=== PATIENT | male | born 1945 ===

== ENCOUNTER 2016-12-03 07:00 | Inpatient (IN) | payer OTHER, MEDICARE ==
--- NOTE | 2016-12-03 07:05 | ED PDOC ---
Arrival/HPI - General Historian: Patient EM Caveat: Acuity of Condition - History of Present Illness Time/Duration: Prior to Arrival Symptom Onset: Sudden Symptom Course: Improving Quality: Pressure Activities at Onset: Sleeping Context: Other (Cruise) - General Chief Complaint: Chest Pain Time Seen by Provider: 12/03/16 07:02 - History of Present Illness Narrative History of Present Illness (Text): Patient is a 71 year old male with a past medical history of Hypertension and sleep apnea who [place] [facility] [place] with complaints of shortness of breath that woke patient out of his sleep at midnight which occurred two days ago while on cruise ship. Patient states that two days prior he was on the cruise ship and woke up feeling as if he were gasping for air. Patient states that he normally sleeps with his CPAP machine but was unable to do so the night before. Patient decided to go outside to get fresh air. He noticed that the dyspnea wasn't improving and asked the security guard supervisor to take him to the clinic. As per cruise ship report, patient was brought to clinic at 5:20 am 12/01/16 cold pale and slow to answer, oriented to person only with complaints of dyspnea. After blood work was taken, he was found to have elevated troponins (12,7.3,10.64) for which he was given aspirin 324 mg, clonidine 0.1 mg, enoxaparin 80 mg, plavix 75 mg. Patient was diagnosed with an NSTEMI on 12/01/16, however ST elevations are noted on EKG taken on 12/02/16. Patient was placed on 24 hour monitoring. He states that last night he started feeling the same shortness of breath and gasping for air he had exeprienced the previous night. Patient currently denies chest pain, shortness of breath, n/v/d, headache, dizziness, weakness. PMD: Dr. Swanson ([place]) PMH: Hypertension, Sleep apnea, Dyslipidemia Medications: Metoprolol 25 mg BID FMH: DM II Allergies:NKDA PSH: no major surgeries 12/03/16 07:34 12/03/16 07:55 12/03/16 08:42 12/03/16 09:39 (Yan Tejeda) Past Medical History - Provider Review Nursing Documentation Reviewed: Yes Family/Social History - Physician Review Nursing Documentation Reviewed: Yes Family/Social History: Diabetes Allergies/Home Meds Allergies/Adverse Reactions: Allergies No Known Allergies Allergy (Verified 12/03/16 11:50) Home Medications: Home Meds Medication Instructions Recorded Confirmed Metoprolol Succinate [Toprol XL] 25 mg PO BID 12/03/16 12/03/16 Review of Systems - Physician Review All systems were reviewed & negative as marked: Yes - Review of Systems Systems not reviewed;Unavailable: Acuity of Condition Constitutional: absent: Fatigue, Fevers Eyes: Normal. absent: Vision Changes Respiratory: absent: SOB, Cough, Wheezing Cardiovascular: absent: Chest Pain, Palpitations Gastrointestinal: absent: Abdominal Pain, Nausea, Vomiting Genitourinary Male: Normal. absent: Dysuria Skin: Normal. absent: Pruritis Neurological: Normal. absent: Headache, Dizziness Endocrine: Normal Hemo/Lymphatic: Normal Psychiatric: Normal. absent: Anxiety Physical Exam Vital Signs Reviewed: Yes Temperature: Afebrile Blood Pressure: Hypertensive Pulse: Regular Respiratory Rate: Normal Appearance: Positive for: Comfortable Pain Distress: None Mental Status: Positive for: Alert and Oriented X 3 - Systems Exam Head: Present: Atraumatic, Normocephalic Extroacular Muscles: Present: EOMI Mouth: Present: Moist Mucous Membranes. No: Dry Pharnyx: Present: Normal. No: ERYTHEMA Respiratory/Chest: Present: Clear to Auscultation, Good Air Exchange Cardiovascular: Present: Regular Rate and Rhythm, Normal S1, S2. No: Murmurs Abdomen: No: Tenderness, Distention Back: Present: Normal Inspection Upper Extremity: Present: Normal Inspection Lower Extremity: Present: Normal Inspection. No: Edema, CALF TENDERNESS Neurological: Present: CN II-XII Intact Skin: Present: Warm, Normal Color Psychiatric: Present: Alert, Oriented x 3 Medical Decision Making Re-evaluation Time: 09:00 (Patient states he feels well. Denies chest pain, shortness of breath, dizziness, hot flushes. Vitals remain stable ) Reassessment Condition: Re-examined - Lab Interpretations I have reviewed the lab results: Yes Interpretation: Abnormal lab values - RAD Interpretation Gas Distribution Supervisor: Radiologist - EKG Interpretation Interpreted by ED Physician: Yes Type: 12 lead EKG ED Course and Treatment: Assessment 71 year old male with dyspnea found to have DE two days prior on cruise ship Plan - EKG, CXR - Cardiac enzymes - Aspirin, Plavix - Discussed with Dr. Templeton regarding case at 7:55; asked to contact pathology laboratory aide , Dr. Moralez was contacted - Discussed with Dr. Moralez regarding case at 8:25; recommended contacting Dr. Mcelroy who is on his service - Discussed with Dr. Mcelroy case at 9:20; states patient will be sent to pathology laboratory aide later today: keep patient NPO, don't give lovenox, admit to telemtry - Patient will be admitted to Dr. Huang's service 12/03/16 08:21 12/03/16 08:25 12/03/16 08:50 12/03/16 09:33 12/03/16 09:40 (Yan Tejeda) Patient Seen With Resident: In agreement with resident note. Patient was seen and evaluated with resident, came up with plan and treatment together. pt aware of plan. pt with NSTEMI at this time. EKG flipped T waves anterior leads. troponin elevated. pt will be going to cath by Dr Moralez later today told to hold lovenox. pt made aware of plan and is agreeable. Dr huang came to ER to see pt as well. 12/03/16 17:35 (Luis Cavazos) - Lab Interpretations Lab Results: 12/03/16 07:20 12/03/16 07:20 Lab Results 12/03/16 07:20: PT 10.5, INR 0.97, APTT 30.6 12/03/16 07:20: WBC 11.7 H, RBC 4.76, Hgb 16.0, Hct 46.2, MCV 97.1, MCH 33.6, MCHC 34.6, RDW 13.3, Plt Count 211, MPV 10.7, Gran % 63.2, Lymph % (Auto) 23.7, Talbot % (Auto) 12.6 H, Eos % (Auto) 0.3 L, Baso % (Auto) 0.2, Gran # 7.42 H, Lymph # 2.8, Talbot # 1.5 H, Eos # 0.0, Baso # 0.02 12/03/16 07:20: Sodium 139, Potassium 4.2, Chloride 103, Carbon Dioxide 28, Anion Gap 12, BUN 14, Creatinine 1.0, Est GFR ( Amer) > 60, Est GFR (Non- Af Amer) > 60, Random Glucose 109, Calcium 9.4, Magnesium 2.1, Total Bilirubin 0.9, AST 91 H, ALT 39, Alkaline Phosphatase 40, Lactate Dehydrogenase 759 H, Total Creatine Kinase 332 H, CK-MB (CK-2) 11.4 H, CK-MB (CK-2) % 3.4 H, Troponin I 6.10 H*, Total Protein 7.8, Albumin 4.3, Globulin 3.4, Albumin/ Globulin Ratio 1.3 - RAD Interpretation Radiology Orders: 12/03/16 07:29 CHEST PORTABLE [RAD] Stat - Medication Orders Current Medication Orders: Acetaminophen (Tylenol 325mg Tab) 650 mg PO Q4H PRN PRN Reason: Pain, Mild (1-3) Alprazolam (Xanax) 0.25 mg PO BID PRN PRN Reason: Anxiety Stop: 12/10/16 17:14 Aspirin (Ecotrin) 81 mg PO DAILY [facility] Atorvastatin Calcium (Lipitor) 20 mg PO DIN [facility] Clopidogrel Bisulfate (Plavix) 75 mg PO DAILY [facility] Docusate Sodium (Colace) 100 mg PO BID [facility] Sodium Chloride (Sodium Chloride 0.9%) 1,000 mls @ 100 mls/hr IV .Q10H [facility] Stop: 12/03/16 23:16 Metoprolol Tartrate (Lopressor) 25 mg PO BID [facility] Last Admin: 12/03/16 10:00 Dose: 25 mg Morphine Sulfate (Morphine) 2 mg IVP Q2H PRN PRN Reason: Pain, moderate (4-7) Zolpidem Tartrate (Ambien) 5 mg PO HS PRN PRN Reason: Insomnia Discontinued Medications Aspirin (Aspirin) 325 mg PO STAT [facility] Stop: 12/03/16 07:30 Last Admin: 12/03/16 07:50 Dose: 325 mg Atropine Sulfate (Atropine) Confirm Administered Dose 1 mg .ROUTE .STK-MED ONE Stop: 12/03/16 16:18 Clopidogrel Bisulfate (Plavix) 300 mg PO STAT STA Stop: 12/03/16 07:34 Last Admin: 12/03/16 07:50 Dose: 300 mg Fentanyl (Fentanyl) Confirm Administered Dose 100 mcg .ROUTE .STK-MED ONE Stop: 12/03/16 16:21 Heparin Sodium (Porcine) (Heparin) Confirm Administered Dose 10,000 units .ROUTE .STK-MED ONE Stop: 12/03/16 16:18 Heparin Sodium (Porcine) (Heparin 1000 Units/500 Ml Ns) Confirm Administered Dose 1,500 mls @ ud IV .STK-MED ONE Stop: 12/03/16 16:19 Nitroglycerin/Dextrose (Nitroglycerin 50 Mg/250 Ml D5w) Confirm Administered Dose 50 mg in 250 mls @ ud IV .STK-MED ONE Stop: 12/03/16 17:02 Iohexol (Omnipaque 350 150 Ml) Confirm Administered Dose 150 ml .ROUTE .STK-MED ONE Stop: 12/03/16 16:19 Iohexol (Omnipaque 350mg/Ml 50 Ml) Confirm Administered Dose 50 ml .ROUTE .STK- MED ONE Stop: 12/03/16 16:19 Iohexol (Omnipaque 350 100 Ml) Confirm Administered Dose 350 mg .ROUTE .STK-MED ONE Stop: 12/03/16 16:19 Lidocaine HCl (Lidocaine 2% 20ml Vial) Confirm Administered Dose 20 ml .ROUTE .STK-MED ONE Stop: 12/03/16 16:18 Midazolam HCl (Versed Inj) Confirm Administered Dose 2 mg .ROUTE .STK-MED ONE Stop: 12/03/16 16:20 Ondansetron HCl (Zofran Inj) Confirm Administered Dose 4 mg .ROUTE .STK-MED ONE Stop: 12/03/16 17:10 Phenylephrine HCl (Phenylephrine Inj) Confirm Administered Dose 10 mg .ROUTE .STK-MED ONE Stop: 12/03/16 16:18 Pneumococcal Polyvalent Vaccine (Pneumovax 23 Vaccine) 0.5 ml IM .ONCE ONE Stop: 12/03/16 14:20 Disposition/Present on Arrival - Present on Arrival Any Indicators Present on Arrival: No History of DVT/PE: No History of Uncontrolled Diabetes: No Urinary Catheter: No History of Decub. Ulcer: No - Disposition Have Diagnosis and Disposition been Completed?: Yes Disposition Time: 08:51 Patient Plan: Admission - Disposition Diagnosis: Myocardial infarction Disposition: HOSPITALIZED Patient Problems: Current Active Problems Problem Status Onset Myocardial infarction Acute Condition: SERIOUS
[2016-12-03 07:48] LABS: BASO # 0.02 K/mm3 (0.0-2.0); BASO % 0.2 % (0.0-3.0); EOS % 0.3 % (1.5-5.0); GRAN # 7.42 (1.4-6.5); GRAN % 63.2 % (50.0-68.0); HEMATOCRIT 46.2 % (42.0-52.0); LYMPH # 2.8 (1.2-3.4); LYMPH % 23.7 % (22.0-35.0); MEAN CELL VOLUME 97.1 fl (80.0-105.0); MEAN CORPUSCULAR HEMOGLOBIN 33.6 pg (25.0-35.0); MEAN CORPUSCULAR HGB CONC 34.6 g/dl (31.0-37.0); MEAN PLATELET VOLUME 10.7 fl (7.0-11.0); MONO # 1.5 (0.1-0.6); MONO % 12.6 % (1.0-6.0); RED CELL DISTRIBUTION WIDTH 13.3 % (11.5-14.5); WHITE BLOOD COUNT 11.7 10^3/ul (4.5-11.0)
[2016-12-03 07:58] LABS: INR 0.97 (0.93-1.08); PARTIAL THROMBOPLASTIN TIME 30.6 Seconds (23.7-30.8)
[2016-12-03 07:59] LABS: ALB/GLOB RATIO 1.3 (1.1-1.8); ALKALINE PHOSPHATASE 40 U/L (38-126); ALT/SGPT 39 U/L (7-56); AST/SGOT 91 U/L (17-59); BILIRUBIN,TOTAL 0.9 mg/dL (0.2-1.3); BLOOD UREA NITROGEN 14 mg/dL (7-21); CALCIUM 9.4 mg/dL (8.4-10.5); CARBON DIOXIDE 28 mmol/L (21-33); CHLORIDE 103 mmol/L (98-107); GFR AFRICAN-AMERICAN > 60; GLUCOSE,RANDOM 109 mg/dL (70-110); MAGNESIUM 2.1 mg/dL (1.7-2.2); SODIUM 139 mmol/L (132-148); TOTAL PROTEIN 7.8 g/dL (5.8-8.3)
[2016-12-03 08:03] LABS: POTASSIUM 4.2 mmol/L (3.6-5.0)
--- NOTE | 2016-12-03 08:20 | RAD ---
HISTORY: chest pain COMPARISON: No prior. FINDINGS: LUNGS: No active pulmonary disease. PLEURA: No significant pleural effusion identified, no pneumothorax apparent. CARDIOVASCULAR: Normal. OSSEOUS STRUCTURES: No significant abnormalities. VISUALIZED UPPER ABDOMEN: Normal. OTHER FINDINGS: None. IMPRESSION: No active disease.
--- NOTE | 2016-12-03 13:23 | CON ---
DATE: 12/03/2016 INDICATIONS: Subacute anterior septal myocardial infarction. HISTORY OF PRESENT ILLNESS: This is a 71-year-old man who developed a chest pain while on a cruise from [place] to [place] 2 days ago. [place], given aspirin, Plavix and had resolution of his symptoms, which included chest discomfort and shortness of breath. Today, he was brought to the Emergency Room at [facility] with positive troponins and an abnormal EKG consistent with an anterior septal myocardial infarction which has evolved. He does not complain of symptoms at this time. There was no chest pain or shortness of breath. There was no orthopnea, PND, syncope, presyncope, lightheadedness, dizziness, vertigo, palpitations, edema, claudication, fever, chills, cough, sputum production, hemoptysis, abdomen pain, nausea, vomiting, diarrhea, constipation or melena. PAST MEDICAL HISTORY: Notable for hypertension, hyperlipidemia, and sleep apnea, he uses a CPAP mask. He denies any prior cardiac diagnosis. There may have been a diagnosis of atherosclerosis, but he is little vague about this. There was no history of prior myocardial infarction, angina, congestive heart failure, arrhythmia, rheumatic fever, stroke, TIA, diabetes or gout. MEDICATIONS: At the time of admission, include metoprolol 25 mg b.i.d. ALLERGIES: THERE WERE NO MEDICATION ALLERGIES. FAMILY HISTORY: Noncontributory for heart disease. REVIEW OF SYSTEMS: A 10-point review of system is otherwise is unremarkable except as noted above. PHYSICAL EXAMINATION: GENERAL: He is a well-developed male, lying on the stretcher in the emergency room, in no acute distress. His is at the bedside. VITAL SIGNS: Notable for pulse of 76 and sinus rhythm, afebrile, blood pressure of 124/82, respirations of 16 and O2 saturation of 96% on room air. HEENT: Exam reveals no neck vein distention, thyromegaly or carotid bruit. Mucous membranes are moist. Conjunctivae are pink. NECK: Supple. CHEST: Lung rhodes clear. CARDIOVASCULAR: Examination of the heart revealed normal first and second heart sounds without murmur, gallop, rub or click. PMI is not displaced. ABDOMEN: Soft. Bowel sounds present. No mass or organomegaly, tenderness, rebound or guarding. No CVA tenderness. No palpable abdominal aortic aneurysm. EXTREMITIES: Exam revealed no cyanosis, clubbing or edema. Diminished foot pulses are noted. Femoral pulses are present. NEUROLOGIC: He is awake, alert and oriented. PSYCHIATRIC: Normal as to mood and affect. SKIN: Warm and dry. No rash or cellulitis. LABORATORY AND IMAGING DATA: A portable chest x-ray reveals no active disease. EKG demonstrates regular sinus rhythm evolving anterior septal myocardial infarction with T-wave inversion and anterior precordial leads. Electrolytes: BUN, creatinine and blood sugar are unremarkable. Magnesium is normal. Total bilirubin is normal. Mild elevation of AST, normal ALT and alkaline phosphatase. CK of 332 and troponin of 6.1. PT, INR and PTT are unremarkable. White count elevated at 11,700 and normal hemoglobin, hematocrit and platelet count. IMPRESSION: Deacon Fernández is a 71-year-old male with hypertension with chest pain and shortness of breath beginning about 2 days ago while on a cruise liner. He [place] [facility] [place] [facility] [place] and found to have positive troponins, abnormal electrocardiogram showing an evolving anteroseptal myocardial infarction. He came to the emergency room today without symptoms with a troponin of 6 and abnormal electrocardiogram showing anterior septal myocardial infarction. PLAN: I have discuss the case with the ER staff. We will make arrangements for a cardiac catheterization later today. In the meantime, he is getting aspirin, Plavix and metoprolol. He is n.p.o. We will check an echocardiogram. We will check a lipid profile. I will add Lipitor to his medical list. Once the cardiac catheterization is completed, we will make additional recommendations including recommendations with regards to traveling home to [place]. Ez Sunshine MD TATYANA
--- NOTE | 2016-12-03 13:41 | CARD ---
APPROVED REPORT EKG Measurement Heart [id number] <Conclusion> Sinus rhythm with premature atrial complexes Septal infarct, age undetermined Marked T wave abnormality, consider anterolateral ischemia Abnormal ECG
--- NOTE | 2016-12-03 13:43 | CARD ---
APPROVED REPORT EKG Measurement Heart [id number] <Conclusion> Normal sinus rhythm Septal infarct, age undetermined Marked T wave abnormality, consider anterolateral ischemia Abnormal ECG
[2016-12-03 14:19] VITALS: BMI 26.9
[2016-12-03] MEDS ORDERED: Pneumococcal 23-Valent Vaccine IM ONE (14:19)
[2016-12-03] MEDS ORDERED: Lidocaine 2% Inj (20ml) ONE (16:17)
[2016-12-03] MEDS ORDERED: Phenylephrine 10 mg/ml Inj ONE (16:17)
[2016-12-03] MEDS ORDERED: Iohexol 350mgl/ml 50 ML ONE (16:18)
[2016-12-03] MEDS ORDERED: Iohexol 350 MG/100 ML VIAL ONE (16:18)
[2016-12-03] MEDS ORDERED: Midazolam 2 MG/2 ML VIAL ONE (16:19)
[2016-12-03] MEDS ORDERED: Nitroglycerin 50mg in D5W 50 MG/250 ML BOTTLE IV ONE (17:01)
[2016-12-03] MEDS ORDERED: Sodium Chloride 0.9% 1,000 ML IV SCH (17:15)
[2016-12-03] MEDS: Morphine 2 mg/ml ISec IVP PRN ×2 (17:51→22:13)
--- NOTE | 2016-12-03 21:56 | HP ---
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 Apparently on the crew ship, he was having chest pain which occurred 2 days ago and there could have been a troponin as high as 12 and now, he is here in our emergency room with a troponin of 6. I understand they called down the asbestos siding installer for cardiac cath in a few hours. This is a 71-year-old man with history of hypertension, sleep apnea who comes in from a crew ship with shortness of breath that woke him up at night, was in the emergency room at the crew ship in the intensive care unit with a positive IN. He is now here, gone for cath this afternoon. He is stable at this time, no chest pain, but he is having an NSTEMI diagnosed on the crew ship. He does have hypertension and obstructive sleep apnea. He is fairly stable as we are talking to him. His is present and he is comfortable at this time. PAST MEDICAL HISTORY: Hypertension, obstructive sleep apnea. FAMILY HISTORY: He has a family history of diabetes. ALLERGIES: HE HAS NO KNOWN DRUG ALLERGIES. He takes metoprolol at home. He has been doing fine up until 2 days ago. REVIEW OF SYSTEMS: No acute vision or hearing changes. A little bit tired. He had shortness of breath, but not now. He had chest pain with severe pressure to the left arm but not now, no palpitations, or nauseousness, then, not now. No abdominal pain. No problems urinating. Skin for the most part is intact. No itching or rashes or ulcers. He could tell me of no headache or dizziness. No anxiety or depression. PHYSICAL EXAMINATION: VITAL SIGNS: He has a 98.6 temp; 62 pulse; 158/103 blood pressure, came down to 124/82 blood pressure; 16 respiratory rate and his oxygen sat is between 96 and 97 O2 sat. HEENT: Head is atraumatic and normocephalic. Extraocular muscles are intact. Pupils are equal and reactive to light and accommodation. Throat is dry. No erythema. NECK: Supple. No JVD. HEART: Regular rate. Normal S1 and S2. LUNGS: Decreased breath sounds, but clear to auscultation. Fair effort. ABDOMEN: Soft, nontender, positive bowel sounds. EXTREMITIES: No edema. No calf tenderness. NEUROLOGIC: Cranial nerves II through XII grossly intact. GCS is 15. Alert and oriented x3. SKIN: Warm and dry. No ulcers appreciated or rashes appreciable. LYMPHATICS: Thyroid midline. No palpable lymphadenopathy. LABORATORY DATA: He had a bunch of tests done. He has 139 sodium, potassium 4.2, BUN 14, creatinine 1, GFR is greater than 60, sugar is 109. Calcium is 9.4, magnesium 2.1. Total bili is 0.9, AST is 91, ALT is 39, alkaline phosphatase is 40. Lactate dehydrogenase is as high as 759. Total creatine kinase is high as 232. His troponin 1 here is 6.1. Two days ago, was 12. Total protein 7.8. Albumin is 4.3. INR is 0.97. He has a 11.7 white count, we will keep an eye on that, could be from stress; 16 hemoglobin; 46.2 hematocrit with a 211 platelets. There was a consult for cardiology, Dr. Sunshine. I believe, Dr. Valladares would be in this afternoon to do a cardiac catheterization for an NSTEMI. We will check his labs tomorrow. I want to make sure he has oxygen, he might be put in the intensive care unit, we will see how he does after the catheterization. The patient is from a crew ship with an acute NSTEMI. Two days ago, hypertension, RIKI, for cardiac cath with Dr. Valladares and the asbestos siding installer. Asael Huang DO MTDD
[2016-12-04] MEDS: Morphine 2 mg/ml ISec IVP PRN ×2 (05:25→13:02)
--- NOTE | 2016-12-04 05:26 | CARDCATH ---
PROCEDURE DATE: 12/03/2016 HISTORY: This is a 71-year-old man who suffered a small anterior wall myocardial infarction while on a cruise ship two days ago. Upon arriving, he was brought to the emergency room. His troponin was 6. His EKG showed evidence of an evolving anterior infarct pattern. Urgent cardiac catheterization was advised. He was chest pain free at the time of the procedure. PROCEDURE: 1. Right and left coronary angiography. 2. Left ventriculography. 3. PCI of first diagonal with balloon angioplasty. 4. PCI of proximal LAD with drug-eluting stent. 5. Right femoral arteriography. 6. Left ventriculography. 7. Angio-seal deployment. FINDINGS: Hemodynamic: Aortic pressure was 100/70 with left ventricular pressure of 100/16. CORONARY ANATOMY: 1. The left main stent was short and normal. 2. Left anterior descending artery was [id number] calcified in its late proximal segment with a 90% stenosis present. In the origin of the LAD stenosis, there was a small bifurcating diagonal branch, which had MICHELLE grade 2 filling. The distal LAD had MICHELLE grade 2 flow as well. 3. The left circumflex artery gave rise to two obtuse marginal branch. The first one was moderate size and had a 70% stenosis in the proximal segment followed by mild irregularities. The circumflex artery then was fairly small with 50% lesion in its mid portion and a 70% stenosis involving the take off of the small second obtuse marginal branch. This had an 80% proximal stenosis. 4. The right coronary artery was large and dominant. This had a mild osteal disease and evidence of a 30% proximal stenosis and a mild lesion in the early distal segment. The posterior lateral branch of PE had minimal disease. LEFT VENTRICULOGRAPHY: A hand injection was performed in the left ventricle using the right Otf catheter in the artery of ejection. This revealed relatively normal wall motion with an ejection fraction of 60%. CURRENT INTERVENTION: Given the above findings, attempted PCI of the LAD was then performed. An [id number] guide catheter was utilized and 4000 units of heparin was administered. The ACT was 324 seconds during the procedure. The lesion of the LAD was successfully crossed with use of a cougar wire. Following this, a choice PT wire was advanced into the diagonal branch. A 2.0 x 15 mm sphincter balloon was then advanced over the choice PT wire into the diagonal and inflation performed to 8 atmospheres. The diseased diagonal had a reduction percent of the stenosis from 90 down to 50%. This vessel appeared fairly small caliber and did not appear appropriate for stenting at this time. The balloon was then withdrawn and the 3.0 x 12 mm balloon was advanced into the LAD at the lesion of the stenosis. This was inflated to 8 atmospheres. This was withdrawn and with this there was evidence of sluggish flow into the diagonal branch. The 2.0 balloon was then advanced back into the diagonal and subsequent inflation was performed to 8 atmospheres. Flow remained fairly sluggish within the vessel. As the diagonal vessel did not appear large enough for stenting, the balloon and wire were withdrawn. Following this, a 3.0 x 15 mm residual drug-eluting stent was advanced into the LAD lesion and inflated to 12 atmospheres. There was 0% residual stenosis following the intervention. MICHELLE grade 3 flow was present at the end of the procedure. The diagonal appeared occluded. CONCLUSION: 1. Severe proximal LAD and diagonal disease. 2. Significant circumflex of first obtuse marginal and distal circumflex disease. 3. Mild RCA disease. 4. Preserved LV systolic function. 5. Successful PCI of RCA with drug-eluting stent. 6. Balloon angioplasty of the diagonal branch, however, subsequent closure of the vessel due to plaque shift and LAD stent placement. RECOMMENDATIONS: The patient was maintained on aspirin, statin, beta-damaris, Plavix at this time. Follow up enzymes and electrogram will be obtained. Stage PCI of the circumflex system should be considered. Aggressive risk factor control is advised. Favian Valladares MD
[2016-12-04 05:54] VITALS: O2SAT 96
[2016-12-04 07:34] LABS: HEMATOCRIT 45.1 % (42.0-52.0); MEAN CELL VOLUME 96.2 fl (80.0-105.0); MEAN CORPUSCULAR HEMOGLOBIN 32.8 pg (25.0-35.0); MEAN CORPUSCULAR HGB CONC 34.1 g/dl (31.0-37.0); MEAN PLATELET VOLUME 10.2 fl (7.0-11.0); RED CELL DISTRIBUTION WIDTH 12.9 % (11.5-14.5); WHITE BLOOD COUNT 12.3 10^3/ul (4.5-11.0)
[2016-12-04 07:58] LABS: ALB/GLOB RATIO 1.2 (1.1-1.8); ALKALINE PHOSPHATASE 41 U/L (38-126); ALT/SGPT 58 U/L (7-56); AST/SGOT 124 U/L (17-59); BILIRUBIN,TOTAL 1.3 mg/dL (0.2-1.3); BLOOD UREA NITROGEN 10 mg/dL (7-21); CARBON DIOXIDE 25 mmol/L (21-33); CHLORIDE 102 mmol/L (98-107); CHOLESTEROL 202 mg/dL (130-200); GFR AFRICAN-AMERICAN > 60; GLUCOSE,RANDOM 116 mg/dL (70-110); POTASSIUM 4.3 mmol/L (3.6-5.0); SODIUM 137 mmol/L (132-148); TOTAL PROTEIN 7.7 g/dL (5.8-8.3)
[2016-12-04 08:15] LABS: TROPONIN I 7.86 ng/mL
--- NOTE | 2016-12-04 08:15 | CP.PCM.PN ---
Subjective - Date & Time of Evaluation Date of Evaluation: 12/04/16 Time of Evaluation: 07:00 - Subjective Subjective: Stable on 2R s/p cath/PCI LAD and POBA D1 (which was occluded at the end of the case). Also there is residual CA/OM disease. See report. I spoke with Dr. Valladares this AM as well. Mild chest heaviness this AM and during the night. MS given. No SOB or leg/ groin sxs. V/S noted. RSR. PE: Lungs: clear Cor.: S1S2 Abd.: soft Ext.: no edema Neuro.: alert Groin OK. I/O: not recorded Echo: will review: prelim. report> ant-apical hypokinesis/akinesis c/w AL/ ischemia Labs noted. TC == 202. LDL pending. Trop pending. Objective - Vital Signs/Intake and Output Vital Signs (last 24 hours): Temp Pulse Resp BP Pulse Ox 98.5 F 89 20 142/91 H 96 12/04/16 05:54 12/04/16 05:54 12/04/16 05:54 12/04/16 05:54 12/04/16 05:54 Intake and Output: 12/04/16 12/04/16 06:59 18:59 Intake Total 1000 240 Balance 1000 240 - Medications Medications: Current Medications Acetaminophen (Tylenol 325mg Tab) 650 mg PO Q4H PRN PRN Reason: Pain, Mild (1-3) Alprazolam (Xanax) 0.25 mg PO BID PRN PRN Reason: Anxiety Stop: 12/10/16 17:14 Aspirin (Ecotrin) 81 mg PO DAILY [facility] Atorvastatin Calcium (Lipitor) 20 mg PO DIN [facility] Last Admin: 12/03/16 17:52 Dose: 20 mg Clopidogrel Bisulfate (Plavix) 75 mg PO DAILY [facility] Docusate Sodium (Colace) 100 mg PO BID [facility] Last Admin: 12/03/16 17:52 Dose: 100 mg Metoprolol Tartrate (Lopressor) 25 mg PO BID [facility] Last Admin: 12/03/16 17:52 Dose: 25 mg Morphine Sulfate (Morphine) 2 mg IVP Q2H PRN PRN Reason: Pain, moderate (4-7) Last Admin: 12/04/16 05:25 Dose: 2 mg Zolpidem Tartrate (Ambien) 5 mg PO HS PRN PRN Reason: Insomnia - Labs Labs: 12/04/16 07:15 12/04/16 07:15 PT 10.5 Seconds (9.9-11.8) 12/03/16 07:20 INR 0.97 (0.93-1.08) 12/03/16 07:20 APTT 30.6 Seconds (23.7-30.8) 12/03/16 07:20 Assessment and Plan - Assessment and Plan (Free Text) Assessment: SOB/CP/Acute ASMI ~ 12/01/16 Severe CAD on cath 12/03/16 with PCI LAD and occluded D1 after POBA and stenting of LAD. Residual CA/OM disease. Additional PCI advised. HBP RIKI HLD Plan: Additional CA/OM PCI advised. Pt may wish to travel to his daughter in [facility]. However, if he stays the PCI of CA/OM can be done here on Wednesday. If he decides to leave we will give him reports and the cath cine to take with him to [place]. Await additional AM labs. Will check echo OOB as dwaine. D/C groin bandage
--- NOTE | 2016-12-04 09:44 | CARD ---
APPROVED REPORT EXAM: Two-dimensional and M-mode echocardiogram with Doppler and color Doppler. Other Information Quality : FairRhythm : INDICATION ACUTE PA 2D DIMENSIONS IVSd1.3 (0.7-1.1cm)LVDd4.5 (3.9-5.9cm) PWd1.2 (0.7-1.1cm) M-Mode DIMENSIONS Aortic Root3.70 (2.2-3.7cm)Aortic Cusp Exc.1.70 (1.5-2.0cm) Aortic Valve AoV Peak Xixpxqvz211.0cm/sAoV VTI30.2cmLVOT Peak Nfpgtbyb316.0cm/s LVOT VTI19.00cm Mitral Valve MV E Slccfwsk52.9cm/sMV A Syrgcvrz67.7cm/sE/A ratio0.7 TDI Lateral E' Peak V6.82cm/sMedial E' Peak V4.48cm/sE/Lateral E'8.0 E/Medial E'12.3 Pulmonary Valve PV Peak Piadckjq62.1cm/sPV Peak Grad.4mmHg Tricuspid Valve TR Peak Vcurlxtx833fz/sRAP NTPLVNQT97geQeNV Peak Gr.15mmHg MAXP71cmIk LEFT VENTRICLE The left ventricle is normal size. There is mild concentric left ventricular hypertrophy. Left ventricle systolic function is mildly to moderately impaired. The Ejection Fraction is 40-45%. The septum and apex are severely hypokinetic to akinetic RIGHT VENTRICLE The right ventricle is normal size. ATRIA The left atrium size is normal. The right atrium size is normal. AORTIC VALVE The aortic valve is mildly calcified. MITRAL VALVE The mitral valve is normal in structure. TRICUSPID VALVE The tricuspid valve is normal in structure. There is trace to mild tricuspid regurgitation. PULMONIC VALVE The pulmonic valve is not well visualized. GREAT VESSELS The aortic root is normal in size. PERICARDIAL EFFUSION There is no pericardial effusion. <Conclusion> The left ventricle is normal size. There is mild concentric left ventricular hypertrophy. Left ventricle systolic function is mildly to moderately impaired. The Ejection Fraction is 40-45%. The septum and apex are severely hypokinetic to akinetic
--- NOTE | 2016-12-04 10:23 | PN ---
DATE: SUBJECTIVE: I saw Deacon resting comfortably in bed today. He came in with an NSTEMI. He was cardiac cath yesterday and had a stent placement. I do believe he needs another stent to be placed. The question is whether he gets discharge back to [place], [place] and I will continue with their order to stay here in the hospital. I will discuss with cardiology, the patient, and the patient's . He is currently on Ambien, Colace, Ecotrin, Lipitor, Lopressor, morphine, Plavix, Tylenol, and Xanax. PHYSICAL EXAMINATION GENERAL: He is comfortable in bed. He is eating. In no acute distress at this time. VITAL SIGNS: He has 98.5 temperature, 89 pulse, 142/91 blood pressure, 20 respiratory rate, 96% O2 saturation on nasal canula. CURRENT MEDICATIONS: Ambien, Colace, Ecotrin, Lipitor, Lopressor, morphine, Plavix, Tylenol, and Xanax. I attempt to increase his blood pressure medication due to blood pressure being elevated. LABORATORY DATA: He currently has a 12.3 white count, 15.4 hemoglobin, 45.1 hematocrit with 175 platelets. The white count went up could be stress related, I will consult ID for their opinion. Sodium is 137, potassium is 4.3, BUN 10, creatinine 0.8, GFR is greater than 60, sugar is 116, calcium is 9, total bilirubin is 1.3, AST is 124, ALT is 58, alkaline phosphatase is 41. Troponin was 6.1, 5.9 and 7.86. He has 7.7 protein, albumin is 4.2, cholesterol was 202, LDL is 143. ASSESSMENT AND PLAN: He was seen by cardiology today. He is stable. He is status post acute anteroseptal myocardial infarction stent in the left anterior descending artery, additional stents are needed. He has hypertension and obstructive sleep apnea and high cholesterol. If he does stay the next cath will be on Wednesday. If he does go to [place] all the reports will be sent with him. We will finalize this afternoon what the plans are. He is here for acute myocardial infarction, obstructive sleep apnea, hypertension, and high cholesterol. Asael Huang DO
[2016-12-04 17:41] VITALS: PULSE 88
[2016-12-04 18:41] VITALS: BP 116/79; RESP 20; TEMP 99.3
--- NOTE | 2016-12-04 21:02 | CARD ---
APPROVED REPORT EKG Measurement Heart [id number] <Conclusion> Normal sinus rhythm Anterior infarct, possibly acute Lateral injury pattern ACUTE ID Abnormal ECG
--- NOTE | 2016-12-12 09:43 | DS ---
HISTORY OF PRESENT ILLNESS: He was here with acute [place], status post cruise ship. He had a cardiac cath with stent placement. He decided to go back to [place] for the second stent placement. He has his medications to follow up with his shelver in [place] for the stent placement in 5 to 7 days. He understands that cardiology discussed with discharge on Deacon Fernández. Asael Huang DO MTDOchoa
== END 2016-12-04 19:41 | disposition home or self-care (01) | DRG 247 ==
LOC: ED 07:00 → ERH 09:49 → 2RSO 14:47
PROVIDERS: ADMIT Family Medicine; ATTEND Family Medicine
PROC: 027034Z Dilation of Coronary Artery, One Artery with Drug-eluting Intraluminal Device, Percutaneous Approach (ICD-10-PCS; principal; 2016-12-03)
PROC: 02703ZZ Dilation of Coronary Artery, One Artery, Percutaneous Approach (ICD-10-PCS; 2016-12-03)
PROC: 4A023N7 Measurement of Cardiac Sampling and Pressure, Left Heart, Percutaneous Approach (ICD-10-PCS; 2016-12-03)
PROC: B2111ZZ Fluoroscopy of Multiple Coronary Arteries using Low Osmolar Contrast (ICD-10-PCS; 2016-12-03)
PROC: B2151ZZ Fluoroscopy of Left Heart using Low Osmolar Contrast (ICD-10-PCS; 2016-12-03)
DX: I21.4 Non-ST elevation (NSTEMI) myocardial infarction (principal); I10 Essential (primary) hypertension; I25.10 Atherosclerotic heart disease of native coronary artery without angina pectoris; G47.33 Obstructive sleep apnea (adult) (pediatric); E78.00 Pure hypercholesterolemia, unspecified; E78.5 Hyperlipidemia, unspecified; Z79.82 Long term (current) use of aspirin; Z83.3 Family history of diabetes mellitus